=== PATIENT | female | born 1965 | race American Indian/Alaskan Native ===

== ENCOUNTER 2017-06-28 08:46 | Observation (INO) | payer BC ==
[2017-06-28] MEDS ORDERED: Sodium Chloride 0.9% 1,000 ML IV SCH (09:00)
--- NOTE | 2017-06-28 09:01 | ED PDOC ---
Arrival/HPI - General Time Seen by Provider: 06/28/17 08:52 - History of Present Illness Narrative History of Present Illness (Text): 51 y/o F c PMHx HTN p/w R arm weakness since awakening this morning at 6:30 am. Patient states she awoke at 3am and was normal at that time. That is the last time well, which is now 6 hours ago. Sister notes patient with what appears to be a delay in speech, takes time to find her words. Patient went [facility], found to have asymmetrical weakness and ambulance called to bring patient to ED. Patient states she feels generally weak like she wants to sleep and also feels particular weakness of the R arm. Patient denies fever, chills, chest pain, dyspnea, vomiting, numbness. Past Medical History - Infectious Disease Hx of Infectious Diseases: None - Cardiac Hx Hypertension: Yes - Pulmonary Hx Respiratory Disorders: No - Neurological Hx Dizziness: Yes (DUE TO HYPERTENSION 2 YRS AGO) - HEENT Hx HEENT Disorder: Yes Hx Epistaxis: Yes (LEFT NARES DUE TO SUPERFICIAL BLOOD VESSELS) - Renal Hx Renal Disorder: No - Endocrine/Metabolic Hx Endocrine Disorders: No - Hematological/Oncological Hx Blood Transfusions: No - Integumentary Hx Dermatological Disorder: No - Musculoskeletal/Rheumatological Hx Arthritis: Yes - Gastrointestinal Hx Gastrointestinal Disorders: No - Genitourinary/Gynecological Hx Genitourinary Disorders: Yes Other/Comment: UTERINE FIBROIDS - Psychiatric Hx Emotional Abuse: No Hx Physical Abuse: No Hx Substance Use: No - Surgical History Hx Orthopedic Surgery: Yes (REPAIR HAMMERTOE LEFT 5TH TOE) Other/Comment: CLIPS ON FALLOPIANN TUBES FOR CONTROL OPEN REMOVAL 2007 - Anesthesia Hx Anesthesia Reactions: No Hx Malignant Hyperthermia: No - Suicidal Assessment Feels Threatened In Home Enviroment: No Family/Social History Family/Social History: Diabetes Smoking Status: Never Smoked Hx Alcohol Use: No Hx Substance Use: No Allergies/Home Meds Allergies/Adverse Reactions: Allergies No Known Allergies Allergy (Verified 06/28/17 09:15) Home Medications: Home Meds Medication Instructions Recorded Confirmed Furosemide [Lasix] 40 mg PO DAILY 01/24/16 01/24/16 Meloxicam [Mobic] 15 mg PO DAILY 01/24/16 01/24/16 Potassium Chloride [K-Tab ER] 10 meq PO DAILY 01/24/16 01/24/16 Review of Systems - Physician Review All systems were reviewed & negative as marked: Yes - Review of Systems Constitutional: absent: Fevers Cardiovascular: absent: Chest Pain Physical Exam - Physical Exam Narrative Physical Exam (Text): Gen: NAD Head: Atraumatic, NC Eyes: PERRL ENT: MMM Neck: Supple Chest: No tenderness CV: Regular rate Lungs: CTA b/l Abd: Soft, NT Skin: No rash Extremities: FROM x 4 Neuro: Alert, oriented x 3. R arm motor 4/5. Medical Decision Making ED Course and Treatment: 06/28/17 08:50 Code stroke called. Out of window for IV tPA, within 12 hours so activated CODE STROKE as per [facility] protocol. Dr. Bentley consulted, recommends Aspirin, CTA Head/Neck. Fingerstick 80s on arrival. 06/28/17 09:18 IMPRESSION: No evidence of acute infarct. No intracranial mass or hemorrhage. No change from 07/07/2015. 06/28/17 09:53 CXR IMPRESSION: No active disease. 06/28/17 09:54 Head/Neck CTA IMPRESSION: Unremarkable CT Angiography of the Brain IMPRESSION: No significant stenosis Dictator: Jhon Patterson MD Aspirin administered. Dr. Khanna accepts patient to his service. - Lab Interpretations Lab Results: 06/28/17 08:56 06/28/17 08:56 Lab Results 06/28/17 08:56: Sodium 144, Potassium 3.4 L, Chloride 102, Carbon Dioxide 32, Anion Gap 14, BUN 12, Creatinine 0.8, Est GFR ( Amer) > 60, Est GFR (Non- Af Amer) > 60, Random Glucose 106, Calcium 9.5, Total Bilirubin 0.5, AST 34, ALT 35, Alkaline Phosphatase 95, Troponin I < 0.01, Total Protein 8.8 H, Albumin 4.4, Globulin 4.4, Albumin/Globulin Ratio 1.0 L, Triglycerides 247 H, Cholesterol 244 H, LDL Cholesterol Direct 144 H, HDL Cholesterol 52 06/28/17 08:56: PT 12.8 H, INR 1.11 H, APTT 28.9 06/28/17 08:56: WBC 5.9, RBC 4.93, Hgb 14.1, Hct 43.1, MCV 87.4, MCH 28.6, MCHC 32.7, RDW 13.4, Plt Count 310, MPV 10.6, Gran % 45.6 L, Lymph % (Auto) 46.5 H, [place] % (Auto) 5.5, Eos % (Auto) 1.7, Baso % (Auto) 0.7, Gran # 2.67, Lymph # ( Auto) 2.7, [place] # (Auto) 0.3, Eos # (Auto) 0.1, Baso # (Auto) 0.04 I have reviewed the lab results: Yes - RAD Interpretation Radiology Orders: 06/28/17 08:55 CTA HEAD/NECK CODE STROKE [CT] Stat HEAD W/O (CODE STROKE) [CT] Stat CHEST PORTABLE [RAD] Stat - Medication Orders Current Medication Orders: Sodium Chloride (Sodium Chloride 0.9%) 1,000 mls @ 100 mls/hr IV .Q10H MINNA Discontinued Medications Aspirin (Aspirin) 325 mg PO STAT STA Stop: 06/28/17 10:00 NIHSS Scale (Diana) Time Performed: 09:54 - How Severe is the Stoke Baseline Level of Consciousness: 0=Alert LOC to Questions: 0=Both comments correct LOC to commands: 0=Obeys both correctly Best Gaze: 0=Normal Visual: 0=No visual loss Facial: 0=Normal Motor Arm - Left: 0=No drift Motor Arm - Right: 0=No drift Motor Leg - Left: 0=No drift Motor Leg - Right: 0=No drift Limb Ataxia: 0=Absent Sensory: 0=Normal Best Language: 1=Mild to moderate aphasia Dysarthia: 0=Normal articulation Extinction & Inattention (Neglect): 0=Normal, no object Score: 1 Risk Level: Minor Stroke Risk Disposition/Present on Arrival - Present on Arrival Any Indicators Present on Arrival: No History of DVT/PE: No History of Uncontrolled Diabetes: No Urinary Catheter: No History Surgical Site Infection Following: None - Disposition Have Diagnosis and Disposition been Completed?: Yes Diagnosis: Right arm weakness Disposition: HOSPITALIZED Disposition Time: 10:09 Patient Plan: Admission, Telemetry Condition: GUARDED
[2017-06-28 09:08] LABS: BASO # 0.04 K/mm3 (0.0-2.0); BASO % 0.7 % (0.0-3.0); EOS # 0.1 (0.0-0.7); EOS % 1.7 % (1.5-5.0); GRAN # 2.67 (1.4-6.5); GRAN % 45.6 % (50.0-68.0); HEMOGLOBIN 14.1 g/dL (12.0-16.0); LYMPH # 2.7 (1.2-3.4); LYMPH % 46.5 % (22.0-35.0); MEAN CELL VOLUME 87.4 fl (80.0-105.0); MEAN CORPUSCULAR HEMOGLOBIN 28.6 pg (25.0-35.0); MEAN CORPUSCULAR HGB CONC 32.7 g/dl (31.0-37.0); MEAN PLATELET VOLUME 10.6 fl (7.0-11.0); MONO # 0.3 (0.1-0.6); MONO % 5.5 % (1.0-6.0); RBC 4.93 10^6/uL (3.5-6.1); RED CELL DISTRIBUTION WIDTH 13.4 % (11.5-14.5); WHITE BLOOD COUNT 5.9 10^3/ul (4.5-11.0)
[2017-06-28 09:16] LABS: ALBUMIN 4.4 g/dL (3.0-4.8); ALT/SGPT 35 U/L (7-56); AST/SGOT 34 U/L (14-36); BLOOD UREA NITROGEN 12 mg/dL (7-21); CALCIUM 9.5 mg/dL (8.4-10.5); GFR AFRICAN-AMERICAN > 60; GFR NON-AFRICAN AMERICAN > 60; HDL CHOLESTEROL 52 mg/dL (29-60)
--- NOTE | 2017-06-28 09:17 | CT ---
PROCEDURE: CT HEAD WITHOUT CONTRAST. HISTORY: Code Stroke COMPARISON: 07/07/2015 TECHNIQUE: Axial computed tomography images were obtained through the head/brain without intravenous contrast. Radiation dose: Total exam DLP = 824.65 mGy-cm. This CT exam was performed using one or more of the following dose reduction techniques: Automated exposure control, adjustment of the mA and/or kV according to patient size, and/or use of iterative reconstruction technique. FINDINGS: HEMORRHAGE: No intracranial hemorrhage. BRAIN: No mass effect or edema. No atrophy or chronic microvascular ischemic changes. VENTRICLES: Unremarkable. No hydrocephalus. CALVARIUM: Unremarkable. PARANASAL SINUSES: Unremarkable as visualized. No significant inflammatory changes. MASTOID AIR CELLS: Unremarkable as visualized. No inflammatory changes. OTHER FINDINGS: None. IMPRESSION: No evidence of acute infarct. No intracranial mass or hemorrhage. No change from 07/07/2015. The findings this examination were discussed, by telephone, with Dr. Macias at 9:13 a.m. on 06/28/2017.
[2017-06-28 09:23] LABS: INR 1.11 (0.93-1.08); PARTIAL THROMBOPLASTIN TIME 28.9 Seconds (25.1-36.5); PROTHROMBIN TIME 12.8 SECONDS (9.4-12.5)
[2017-06-28 09:26] LABS: TROPONIN I < 0.01 ng/mL
[2017-06-28 09:27] LABS: LDL CHOLESTEROL 144 mg/dL (0-129)
--- NOTE | 2017-06-28 09:49 | RAD ---
HISTORY: Code Stroke COMPARISON: 07/06/2015 FINDINGS: LUNGS: No active pulmonary disease. PLEURA: No significant pleural effusion identified, no pneumothorax apparent. CARDIOVASCULAR: Normal. OSSEOUS STRUCTURES: No significant abnormalities. VISUALIZED UPPER ABDOMEN: Normal. OTHER FINDINGS: None. IMPRESSION: No active disease.
--- NOTE | 2017-06-28 09:55 | CT ---
PROCEDURE: CT Angiography of the neck with contrast HISTORY: code stroke COMPARISON: None available. TECHNIQUE: Contiguous axial images of the neck were obtained from the level of the skull-base to the superior mediastinum in the arteriographic phase of enhancement. Coronal and sagittal reformats or also generated. IV contrast dose: 150 cc of Omni 350 Radiation Dose - DLP: 504 mGy-cm This CT exam was performed using one or more of the following dose reduction techniques: Automated exposure control, adjustment of the mA and/or kV according to patient size, and/or use of iterative reconstruction technique. FINDINGS: RIGHT CAROTID ARTERIES: Common Carotid Artery: Normal. Carotid Bifurcation: Normal. Internal Carotid Artery:Normal. External Carotid Artery (proximal branches): Normal. LEFT CAROTID ARTERIES: Common Carotid Artery: Normal. Carotid Bifurcation: Normal. Internal Carotid Artery:Normal. External Carotid Artery (proximal branches): Normal. VERTEBRAL ARTERIES: Right Vertebral Artery: Normal. Left Vertebral Artery: Normal. OTHER FINDINGS: None. IMPRESSION: No significant stenosis CT Angiography of the Brain. HISTORY: code stroke COMPARISON: None available. TECHNIQUE: CT angiography of the intracranial arteries was performed. Coronal and sagittal maximum intensity projection reformated images were generated. This CT exam was performed using one or more of the following dose reduction techniques: Automated exposure control, adjustment of the mA and/or kV according to patient size, and/or use of iterative reconstruction technique. FINDINGS: INTERNAL CEREBRAL ARTERIES: Unremarkable. The skull base, petrous, cavernous and supraclinoid segments are bilaterally widely patent. ANTERIOR CEREBRAL ARTERIES: Unremarkable. A1 and A2 segments are widely patent. Smaller distal branches unremarkable, as visualized. MIDDLE CEREBRAL ARTERIES: Unremarkable. M1 and M2 segments are widely patent. Perisylvian branches grossly symmetric. POSTERIOR CIRCULATION: Basilar Artery: Unremarkable. Distal Vertebral Arteries: Unremarkable. Posterior Cerebral Arteries: Unremarkable. Posterior Inferior Cerebellar Arteries: Unremarkable. ANEURYSM/ VASCULAR MALFORMATIONS: None. OTHER FINDINGS: None. IMPRESSION: Unremarkable CT Angiography of the Brain.
[2017-06-28 11:11] LABS: URINE BILIRUBIN NEGATIVE (NEGATIVE); URINE BLOOD NEGATIVE (NEGATIVE); URINE GLUCOSE (UA) NEGATIVE (NEGATIVE); URINE LEUKOCYTE ESTERASE NEGATIVE Leu/uL (NEGATIVE); URINE PROTEIN NEGATIVE mg/dL (<30 mg/dL); URINE UROBILINOGEN 0.2 E.U./dL (<1 E.U./dL)
[2017-06-28 11:15] LABS: URINE APPEARANCE CLEAR (CLEAR); URINE COLOR LIGHT YELLOW (YELLOW)
[2017-06-28] MEDS ORDERED: Potassium Chloride 20 mEq ER Tab PO STA (11:25)
--- NOTE | 2017-06-28 11:32 | CP.PCM.CON ---
History of Present Illness - History of Present Illness History of Present Illness: 51 y/o F c PMHx HTN p/w R arm weakness since awakening this morning at 6:30 am. Patient states she awoke at 3am and was normal at that time. That is the last time well, which is now 6 hours ago. Sister notes patient with what appears to be a delay in speech, takes time to find her words. Patient went to Urgent Care [facility], found to have asymmetrical weakness and ambulance called to bring patient to ED. Patient states she feels generally weak like she wants to sleep and also feels particular weakness of the R arm. Patient denies fever, chills, chest pain, dyspnea, vomiting, numbness. On exam: Neurological exam is normal except for flat affect, and cogwheel rigidity in left arm. it is not present in her right arm. There is a resting tremor, pill rolling in nature, and there is no asterixis. EOmi, Cn 2-12 normal. motor: normal. there are no sensory deficits. Gait is normal, no ataxia. +2 dtr ul and ll bl. toes downgoing. No clonus. Past Patient History - Infectious Disease Hx of Infectious Diseases: None - Past Medical History & Family History Past Medical History?: Yes - Past Social History Smoking Status: Never Smoked - CARDIAC Hx Hypertension: Yes - PULMONARY Hx Respiratory Disorders: No - NEUROLOGICAL Hx Dizziness: Yes (DUE TO HYPERTENSION 2 YRS AGO) - HEENT Hx HEENT Problems: Yes Hx Epistaxis: Yes (LEFT NARES DUE TO SUPERFICIAL BLOOD VESSELS) - RENAL Hx Chronic Kidney Disease: No - ENDOCRINE/METABOLIC Hx Endocrine Disorders: No - HEMATOLOGICAL/ONCOLOGICAL Hx Blood Transfusions: No - INTEGUMENTARY Hx Dermatological Problems: No - MUSCULOSKELETAL/RHEUMATOLOGICAL Hx Arthritis: Yes - GASTROINTESTINAL Hx Gastrointestinal Disorders: No - GENITOURINARY/GYNECOLOGICAL Hx Genitourinary Disorders: Yes Other/Comment: UTERINE FIBROIDS - PSYCHIATRIC Hx Emotional Abuse: No Hx Physical Abuse: No Hx Substance Use: No - SURGICAL HISTORY Hx Orthopedic Surgery: Yes (REPAIR HAMMERTOE LEFT 5TH TOE) Other/Comment: CLIPS ON FALLOPIANN TUBES FOR CONTROL OPEN REMOVAL 2006 - ANESTHESIA Hx Anesthesia Reactions: No Hx Malignant Hyperthermia: No Meds Allergies/Adverse Reactions: Allergies Allergy/AdvReac Type Severity Reaction Status Date / Time No Known Allergies Allergy Verified 06/28/17 09:15 - Medications Medications: Current Medications Sodium Chloride (Sodium Chloride 0.9%) 1,000 mls @ 100 mls/hr IV .Q10H MINNA Last Admin: 06/28/17 09:30 Dose: Not Given Results - Vital Signs Recent Vital Signs: Last Vital Signs Temp 98 F 06/28/17 09:24 Pulse 68 06/28/17 11:11 Resp 20 06/28/17 11:11 BP 147/81 06/28/17 11:11 Pulse Ox 98 06/28/17 11:11 - Labs Result Diagrams: 06/28/17 08:56 06/28/17 08:56 Labs: Laboratory Results - last 24 hr 06/28/17 06/28/17 10:45 10:45 Urine Color Light yellow Urine Appearance Clear Urine pH 7.0 Ur Specific [place] 1.010 Urine Protein Negative Urine Glucose (UA) Negative Urine Ketones Negative Urine Blood Negative Urine Nitrate Negative Urine Bilirubin Negative Urine Urobilinogen 0.2 Ur Leukocyte Esterase Negative BBK History Checked Patient has bt - Imaging and Cardiology CT scan - head Status: Image reviewed by me, Report reviewed by me (normal. ) Assessment & Plan - Assessment and Plan (Free Text) Assessment: 51 yr old woman with report of left arm weakness, not a TPA candidate due to time of onset, unknown possibly starting at about 3 am, and presentingto the ER at 830 am. After neurological examination, it is noted that she has some signs of Parkinsons disease. This may be because of a small stroke in the basal ganglia, right side, that is not visualized on CT scan. If her MRI brainis normal, then we will pursue a diagnosis of Parkinsons. Plan: 1. MRI Brain without contrast 2. start aspirin 3. ECHO 4. PT 5. Lipid profile. 6. If MRI brain shows stroke, we will order hypercoagulable workup. Dr. Mc MD, DPN
[2017-06-28] MEDS: Sodium Chloride 0.45% 1,000 ML IV SCH (12:08)
[2017-06-28] MEDS ORDERED: Gadodiamide 287 MG/ML VIAL (15ML) IV ONE (14:04)
--- NOTE | 2017-06-28 14:42 | MRI ---
PROCEDURE: MRI BRAIN WITH AND WITHOUT CONTRAST HISTORY: R arm weakness/tremor COMPARISON: None. TECHNIQUE: Multiplanar, multisequence MR images of the brain were obtained with and without intravenous contrast enhancement. 15 cc of Omniscan FINDINGS: HEMORRHAGE: None DWI: No evidence of an acute or early subacute infarction. BRAIN PARENCHYMA: No mass,mass effect or edema. No atrophy or chronic microvascular ischemic changes. ENHANCEMENT: No abnormal intracranial enhancement. VENTRICLES: Unremarkable. No hydrocephalus. CRANIUM: Unremarkable. ORBITS: Grossly unremarkable. PARANASAL SINUSES/MASTOIDS: Clear VASCULAR SYSTEM: Skull base flow voids intact. OTHER FINDINGS: There is a 6 mm lesion on the left side of the pituitary gland consistent with a microadenoma. This is seen on image 11 series 11. Endocrine correlation is suggested. IMPRESSION: No acute intracranial findings. 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
[2017-06-28 16:59] VITALS: BMI 35.9
[2017-06-28] MEDS ORDERED: Influenza Vaccine 60 mcg/0.5 mL SYR (4YR UP) IM ONE (17:00)
[2017-06-28] MEDS ORDERED: Pneumococcal 23-Valent Vaccine IM ONE (17:00)
--- NOTE | 2017-06-28 22:01 | CON ---
DATE: 06/28/2017 CARDIOLOGY CONSULTATION HISTORY OF PRESENT ILLNESS: The patient is a 53-year-old woman who woke up this morning with a trembling of her right extremity as well as loss of balance in her gait. The patient's past medical history is notable for hypertension. She underwent a cardiac evaluation in 2015 where a stress test showed normal LV function. Her stress test was unremarkable. Her echocardiogram at that time revealed good LV function and no pulmonary hypertension. She denies diabetes mellitus. No angina. SOCIAL HISTORY: The patient does not smoke. PHYSICAL EXAMINATION: VITAL SIGNS: Blood pressure 150/88, heart rate in the 80s. NECK: Negative JVD. LUNGS: Without rales. HEART: S1, S2. EXTREMITIES: Without edema. EKG shows normal sinus rhythm with nonspecific ST-T changes. LABORATORY DATA: Reveal troponins is negative x1. Triglycerides 247, potassium is 3.4 with a hemoglobin of 14.1. IMPRESSION: 1. Focal neurologic deficit that was transient. 2. No arrhythmias noted. 3. Hypertension. 4. Hypertriglyceridemia. 5. Negative carotid studies. Given these findings, there is no evidence for cardiac cause of her symptomatology. The patient will need a neurologic evaluation. We will start the patient on daily aspirin. Steven Cintron MD
--- NOTE | 2017-06-28 22:50 | HP ---
HISTORY OF PRESENT ILLNESS: I saw her in the emergency room. She comes in being woken up at 3:00 a.m. and not feeling well. She had right arm weakness. She also had bloody nose earlier. She also had delay in her speech. Needs assistance with walking. She got very weak, was very wobbly when she stood up, almost likely she was going to fall. The room was spinning and she came into the emergency room. PAST MEDICAL HISTORY: Hypertension, she had this 2 years ago. The left naris had epistaxis, bleeding vessels. She has arthritis. She has history of uterine fibroids. She had hammertoe left foot, surgery and repair. Clips on the fallopian tubes for control. FAMILY HISTORY: Diabetes. SOCIAL HISTORY: She has never smoked. No alcohol or drugs. ALLERGIES: NO KNOWN DRUG ALLERGIES. MEDICATIONS: She takes Lasix, Mobic, and potassium. REVIEW OF SYSTEMS: Her head is dizzy. Difficult for her to focus the vision. Hearing is okay. She feels off mentally. No sore throat. No neck pain. No chest pain or palpitations. No shortness of breath or cough. No abdominal pain, nausea, vomiting, constipation, or diarrhea. She feels weak and dizzy when she walks. She feels that she is going to fall and the whole place is spinning. PHYSICAL EXAMINATION: GENERAL: Comfortable, looking at me, but she is little bit off with her stare. VITAL SIGNS: She has a 98 temperature, 77 pulse, 154/70 blood pressure 18 respiratory rate, and 98% O2 sat on room air. HEENT: Extraocular muscles are intact. Pupils equally reactive to light. Head is normocephalic, atraumatic. She can stick out her tongue midline. Throat is dry. HEART: Regular rate. LUNGS: Decreased breath sounds but clear. ABDOMEN: Soft, nontender. Positive bowel sounds. EXTREMITIES: Have no edema at this time. She has full range of motion of all four extremities. NEUROLOGIC: She is alert and oriented x3. She came in with the right arm a little bit weaker, but is back to work she tells me. SKIN: For the most part is intact that I could tell, no ulcers or rashes. She was out of the window for IV t-PA. She had a code stroke called on her. She had a bunch of tests done. CAT scan of the head was okay. Head and neck CTA was okay. Chest x-ray was okay. She has a 5.9 white count, 14.1 hemoglobin, 43.1 hematocrit with 310 platelets. INR is 1.11. Sodium 144; potassium is 3.4, I gave her potassium; BUN 12; creatinine 0.8; GFR is greater than 60; sugar is 106; calcium is 9.5. Total bilirubin is 0.5, AST is 34, ALT is 35, alkaline phosphatase 95. Troponin 1 is less than 0.01. Total protein 3.8, albumin is 4.4, globulin is 4.4. Cholesterol is 244, I will put her on some Lipitor and her triglycerides are 247, very high. Urine was clean. She will have a consult with Neurology and Cardiology. I will put her on Norvasc for the blood pressure, meclizine for the dizziness, and I will discuss Lipitor and TriCor with Dr. Cintron, the technology training associate. Awaiting the MRI of the brain. I believe there is a swallow study pending and diet. Shon Khanna DO [facility]
[2017-06-29 02:53] VITALS: RESP 20; TEMP 98.2; O2SAT 97
[2017-06-29] MEDS: Sodium Chloride 0.45% 1,000 ML IV SCH (05:06)
[2017-06-29 06:57] LABS: HEMOGLOBIN 12.4 g/dL (12.0-16.0); MEAN CELL VOLUME 87.7 fl (80.0-105.0); MEAN CORPUSCULAR HEMOGLOBIN 28.3 pg (25.0-35.0); MEAN CORPUSCULAR HGB CONC 32.3 g/dl (31.0-37.0); MEAN PLATELET VOLUME 11.1 fl (7.0-11.0); RBC 4.38 10^6/uL (3.5-6.1); RED CELL DISTRIBUTION WIDTH 13.5 % (11.5-14.5); WHITE BLOOD COUNT 5.7 10^3/ul (4.5-11.0)
[2017-06-29 07:42] LABS: ALB/GLOB RATIO 0.9 (1.1-1.8); ALBUMIN 3.4 g/dL (3.0-4.8); ALT/SGPT 21 U/L (7-56); AST/SGOT 27 U/L (14-36); BLOOD UREA NITROGEN 17 mg/dL (7-21); CALCIUM 9.3 mg/dL (8.4-10.5); GFR AFRICAN-AMERICAN > 60; GFR NON-AFRICAN AMERICAN > 60
--- NOTE | 2017-06-29 10:28 | CARD ---
APPROVED REPORT EKG Measurement Heart [id number] <Conclusion> Normal sinus rhythm Minimal voltage criteria for LVH, may be normal variant New T wave inversions V 2 - 6 c/w ECG 07/06/15
[2017-06-29 10:45] LABS: FREE T4 0.87 ng/dL (0.78-2.19)
--- NOTE | 2017-06-29 12:52 | CON ---
DATE: 06/29/2017 HISTORY OF PRESENT ILLNESS: Apparently the 51-year-old lady was admitted for right-sided weakness, presumed CVA and with MRI of the brain, which showed a tiny pituitary microadenoma. She has had up to this point, no endocrine workup. Essentially, this is not the etiology of any focal neurological symptoms such as right-sided weakness likely an incidental finding, any case, certainly the patient requires and attended endocrine workup, which I took the liberty of ordering. I would suggest Endocrinology consultation. We will follow up on the Endocrine the patient. We will not require any neurosurgical attention and certainly there is no point in surgery at this time. Again, we will follow up on the basis of the results of the endocrine panel. Pierre Mustafa MD
--- NOTE | 2017-06-29 13:02 | CP.PCM.PN ---
Subjective - Date & Time of Evaluation Date of Evaluation: 06/29/17 Time of Evaluation: 13:00 - Subjective Subjective: Ms. Bird was seen and examined at the bedside. She is alert, oriented in all spheres. She denies any headache, blurred vision, nausea, or vomiting. She claims of feeling dizzy with change in position or turning her head from side to side. She is able to follow simple commands. She remains with minimal weakness of her right side. MRI of the brain showed 6 mm lesion on the left side of the pituitary gland consistent with a microedema, but no evidence of an acute or early subacute infarction. There was no untoward events overnight. Objective - Vital Signs/Intake and Output Vital Signs (last 24 hours): Temp Pulse Resp BP Pulse Ox 98.2 F 82 20 136/68 97 06/29/17 00:01 06/29/17 02:00 06/29/17 00:01 06/29/17 09:57 06/29/17 00:01 Intake and Output: 06/29/17 06/29/17 06:59 18:59 Intake Total 180 Balance 180 - Medications Medications: Current Medications Amlodipine Besylate (Norvasc) 2.5 mg PO DAILY [facility] Last Admin: 06/29/17 09:57 Dose: 2.5 mg Aspirin (Ecotrin) 81 mg PO DAILY [facility] Last Admin: 06/29/17 09:57 Dose: 81 mg Sodium Chloride (Sodium Chloride 0.45%) 1,000 mls @ 60 mls/hr IV .[id number] [facility] Last Admin: 06/29/17 05:06 Dose: Not Given Meclizine HCl (Antivert) 25 mg PO Q8H PRN PRN Reason: Dizziness Last Admin: 06/29/17 09:57 Dose: 25 mg - Labs Labs: 06/29/17 06:20 06/29/17 06:20 PT 12.8 SECONDS (9.4-12.5) H 06/28/17 08:56 INR 1.11 (0.93-1.08) H 06/28/17 08:56 APTT 28.9 Seconds (25.1-36.5) 06/28/17 08:56 - Constitutional Appears: No Acute Distress - Head Exam Head Exam: NORMAL INSPECTION - Neurological Exam Neurological Exam: Alert, Awake Neuro motor strength exam: Left Upper Extremity: 5, Right Upper Extremity: 4, Left Lower Extremity: 5, Right Lower Extremity: 4 Additional comments: AOx3, follows commands, with dizziness with change of position. Assessment and Plan (1) Right arm weakness Assessment & Plan: Case discussed with Dr. Bentley, continue all current medical and physical therapy. Recommend neurosurgery to evaluate the pituitary lesion. Status: Acute
[2017-06-29 13:22] VITALS: BP 124/85; PULSE 70
[2017-06-29] MEDS ORDERED: Potassium Chloride 20 mEq ER Tab PO ONE (14:22)
--- NOTE | 2017-06-29 17:53 | CARD ---
APPROVED REPORT EXAM: Two-dimensional and M-mode echocardiogram with Doppler and color Doppler. INDICATION CVA/TIA 2D DIMENSIONS Left Atrium (2D)5.1 (1.6-4.0cm)IVSd1.0 (0.7-1.1cm) LVDd4.8 (3.9-5.9cm)PWd1.0 (0.7-1.1cm) LVDs3.3 (2.5-4.0cm)FS (%) 30.8 % LVEF (%)58.0 (>50%) M-Mode DIMENSIONS Aortic Root3.20 (2.2-3.7cm)Aortic Cusp Exc.1.70 (1.5-2.0cm) Aortic Valve AoV Peak Danmotrn902.0cm/Tina Peak GR.10mmHg Mitral Valve MV E Vgniaxeq66.4cm/sMV A Thugmmiz68.3cm/sE/A ratio0.8 TDI Lateral E' Peak V9.94cm/sMedial E' Peak V6.63cm/sE/Lateral E'7.4 E/Medial E'11.1 Pulmonary Valve PV Peak Scotchcj19.0cm/sPV Peak Grad.2mmHg Tricuspid Valve TR Peak Eiqrdjvv009de/sRAP [id number] Peak Gr.19mmHg [id number] LEFT VENTRICLE The left ventricle is normal size. There is normal left ventricular wall thickness. The left ventricular function is normal. The left ventricular ejection fraction is within the normal range. There is normal LV segmental wall motion. Transmitral Doppler flow pattern is Grade I-abnormal relaxation pattern. RIGHT VENTRICLE The right ventricle is normal size. There is normal right ventricular wall thickness. The right ventricular systolic function is normal. ATRIA The left atrium is mildly dilated. The right atrium size is normal. AORTIC VALVE The aortic valve is normal in structure. No aortic regurgitation is present. There is no aortic valvular stenosis. MITRAL VALVE The mitral valve is normal in structure. There is no mitral valve regurgitation noted. TRICUSPID VALVE The tricuspid valve is normal in structure. There is no tricuspid valve regurgitation noted. GREAT VESSELS The aortic root is normal in size. The IVC is normal in size and collapses >50% with inspiration. PERICARDIAL EFFUSION There is no pericardial effusion. <Conclusion> The left ventricle is normal size. There is normal left ventricular wall thickness. The left ventricular function is normal. The left ventricular ejection fraction is within the normal range. There is normal LV segmental wall motion. Transmitral Doppler flow pattern is Grade I-abnormal relaxation pattern.
--- NOTE | 2017-06-29 18:06 | PN ---
DATE: SUBJECTIVE: The patient denies any arm or leg weakness at this time. She has no speech difficulty today. PHYSICAL EXAMINATION: VITAL SIGNS: Blood pressure 124/85, heart rate 70, temperature 98.4, respirations 20. HEENT: Normocephalic. CHEST: Clear. HEART: S1 and S2, regular. EXTREMITIES: Trace leg edema. LABORATORY DATA: SMA-7: Sodium 141, potassium 3.3, chloride 103, CO2 of 30, glucose 96. BUN 17, creatinine 0.7. Hemoglobin and hematocrit 12.4 and 38.4, white count and platelet count are within normal limit. 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 Head and neck CTA, unremarkable study. EKG revealed sinus rhythm, consider anterior ischemic T-wave changes. ASSESSMENT: 1. Consider transient ischemic attack. 2. Anterior ischemic EKG changes. 3. Hypertension. 4. Hypokalemia. RECOMMENDATIONS: Continue aspirin 81 mg once a day, amlodipine 2.5 mg once a day. The patient did receive K-Dur 20 mEq today and continue K-Dur 20 mEq orally daily. I would review the echocardiographic study performed today and follow up BMP in a.m. Yasmany Culver MD
--- NOTE | 2017-06-29 19:01 | CON ---
DATE: ENDOCRINOLOGY CONSULT LOCATION: Room 374. HISTORY OF PRESENT ILLNESS: This is a 51-year-old female with history of hypertension and dyslipidemia, presenting here with sudden onset of right arm weakness and supervening slurred speech with dizziness and lightheadedness and gait instability and is now undergoing neurological workup for possible transient ischemic event and underlying cerebrovascular disease and is being referred also for endocrine evaluation because of an incidental finding on the MRI of the brain of the presence of a 6 mm microadenoma as noted thereof. PAST MEDICAL HISTORY: As mentioned above. History of hypertension and dyslipidemia, currently on medications as noted. History of diffuse osteoarthritis. FAMILY HISTORY: Positive for hypertension and diabetes. SOCIAL HISTORY: The patient has a supportive family. No known substance use. REVIEW OF SYSTEMS: As mentioned above. Admits to generalized body weakness with easy fatigability and tiredness and supervening dizziness and lightheadedness, worse on the day of admission. Also, admits to bifrontal headaches with visual blurring as noted. No chest pains or palpitations or PND. Her oral intake has been variable with occasional constipation but otherwise no recent alterations of bowel or urinary patterns. PHYSICAL EXAMINATION: GENERAL: This is an overweight female, in no apparent distress. VITAL SIGNS: Blood pressure of 150/90, pulse of 70 beats per minute and regular, temperature 98, respirations 20, height is 5 feet 9 inches, weight is 243 pounds. HEENT: Head normocephalic. Eyes anicteric with pink conjunctivae. Funduscopy not possible at this time. Ears, nose, and throat at otherwise normal. NECK: Supple. Thyroid gland is normal in size. No carotid bruits or cervical adenopathy. CARDIOPULMONARY: Some adynamic precordium. S1, S2 is rapid and regular. LUNGS: Clear to auscultation. ABDOMEN: Flat, soft with positive bowel sounds. EXTREMITIES: No peripheral edema. Pulses are +2 bilaterally. LABORATORY DATA: Chemistry showed a BUN of 17, sodium 141, potassium 3.3, chloride 102, CO2 of 30, glucose 96. and creatinine 0.7. The MRI of the brain showed a 6 mm lesion in the left side of the pituitary gland consistent with a microadenoma. No other mass lesions noted otherwise. ASSESSMENT: This is a 51-year-old female with sudden onset of dizziness and lightheadedness and right arm weakness with slurred speech and the possibility of a transient ischemic event. It is being worked up neurologically at this point in time. She also has an incidental finding of a very small microadenoma measuring 6 mm in the pituitary gland as noted. The possibility of that we are dealing with a functioning versus nonfunctioning microadenoma has to be excluded with subsequent endocrine workup at this time. With the very minute size of the pituitary lesion, this certainly will not cause any kind of visual changes, any gait instability, or speech disturbances at this time. PLAN OF MANAGEMENT: We will obtain a comprehensive hormonal profile to include a TSH, prolactin level, and a serum cortisol level to exclude the possibility of underlying subclinical functioning microadenoma at this time. No indication for any kind of pharmacotherapy at this point in time pending the completion of the hormonal profile as ordered. We will obtain serial chemistries and supplement accordingly as needed. We will follow. Ira Kirk MD
--- NOTE | 2017-06-30 02:09 | DS ---
SUBJECTIVE: She is resting comfortably in bed. She is feeling much better than when she came in. The weakness on the hand and the sensation of the head and the dizziness have really about 80% to 90% improved. She is not 100% yet. She is on IV fluids, meclizine, aspirin, potassium replacement, Norvasc. PHYSICAL EXAMINATION: VITAL SIGNS: 98.2 temp, 78 pulse, 136/84 blood pressure, 20 respiratory rate, 97% O2 sat on room air. HEENT: Head is atraumatic, normocephalic. She is looking at me better; the face was little bit off yesterday, now it is much better. HEART: Regular rate. LUNGS: Decreased breath sounds, but clear to auscultation. ABDOMEN: Soft. EXTREMITIES: No edema. I am hoping possibly that we can discharge her today. She has a microadenoma of the pituitary. I am going to get a consult with Dr. Sanchez, the levers lace machine operator, and Dr. Warren, the neurosurgeon, to see if we have to do anything at this time since her symptoms are very much improved. LABORATORY DATA: She has a 5.7 white count, 12.4 hemoglobin, 38.4 hematocrit, 278 platelets. Sodium 141, potassium 3.3, I will give her more potassium today, BUN 17, creatinine 0.7, GFR is greater than 60, sugar is 96, calcium is 9.3, total bilirubin is 0.3. AST is 27, ALT is 21, alkaline phosphatase is 77, total protein is 7.1. Urine is clear. She had an MRI of the brain, which showed no acute intracranial findings, but probable microadenoma, left-sided pituitary gland. I want to see what the levers lace machine operator and the neurosurgeon thinks about that. She was seen by the power lineworker and the neurologist. The focal neuro deficit was transient. She has hypertension and high triglycerides. If possible and okay with the other physicians, I will try to discharge her may be later this afternoon and she will follow up on the outpatient. I will talk to other physicians this afternoon. Shon Khanna DO [facility] # [id number]
[2017-06-30] MEDS ORDERED: Potassium Chloride 20 mEq ER Tab PO SCH (08:00)
== END 2017-06-29 19:24 | disposition home or self-care (01) ==
LOC: ED 08:46 → INTOOBSV 10:03 → ERH 10:03 → 3RSO 21:12
PROVIDERS: ADMIT Family Medicine; ATTEND Family Medicine
DX: R53.1 Weakness (principal); R42 Dizziness and giddiness; R47.81 Slurred speech; I10 Essential (primary) hypertension; R04.0 Epistaxis; E78.1 Pure hyperglyceridemia; E87.6 Hypokalemia
CPT/HCPCS: 36415; 70450; 70496; 70498; 70553; 71045; 80053; 80061; 81003; 81025; 82533; 82948; 83036; 84146; 84439; 84443; 84484; 85025; 85027; 85610; 85730; 86850; 86900; 87086; 93005; 93306; 97162; 97530; 99285; A9579; G0378; G8978; G8979; G8980; J7030; Q9967